=== PATIENT | male | born 1970 | race Caucasian/White ===

== ENCOUNTER 2018-01-30 22:10 | Emergency (ER) | payer OTHER, SELFPAY ==
[2018-01-30 22:14] VITALS: BP 154/93; PULSE 80; RESP 18; TEMP 36.6; O2SAT 98
--- NOTE | 2018-01-30 22:25 | DI.RAD_ITS ---
SYMPTOM/DIAGNOSIS: TRAUMA RIGHT SHOULDER: 01/30 Five views were obtained. There are hypertrophic degenerative changes at the acromioclavicular joint. There is no evidence of acute fracture or dislocation.
--- NOTE | 2018-01-30 22:27 | ED.GENADUL_ITS ---
Discharge Plan Disposition Patient Disposition: HOME Condition: Good Discharge Details Chief Complaint: Orthopedic Clinical Impression: Injury of right shoulder ED Provider: Sourav Tavarez [place] Meds and New Rx's Prescriptions: New ibuprofen 600 mg tablet 600 mg PO TID PRN (Reason: pain) Qty: 30 RF: 0 Continue levothyroxine 125 mcg Tablet 125 mcg PO DAILY RF: 0 Discharge Instructions Instructions: Shoulder Sprain (ED) Additional Instructions: Wear sling for comfort for the next couple of days but try to do range of motion exercises to keep loose. Continue ice over the weekend. Motrin for pain. Follow-up with occupational health this week. Stand Alone Forms: Work Release Medical Decision Making Patient with right shoulder injury in the posterior superior aspect making me worry for rotator cuff injury. I do not think he is dislocated. He is neurovascularly intact distally. Cap refill and pulses are normal. Sensory and strength distally are intact. We will give a shot of Toradol and apply ice. X-ray obtained. X-ray per my read is negative for dislocation or fracture. Will wait for preliminary radiology read. Sling for comfort over the next couple of days. Continue nonsteroidals and ice. Refer to [facility] for follow-up. Prelim radiology read is negative. Patient discharged home. HPI General Mode of arrival: ambulatory . Date/Time Provider Initiated Documentation: 01/30/18 22:24 . Limitations to Documentation: no limitations . Information obtained by: patient . HPI Narrative: Patient is a [id number] male who presents with right shoulder pain. 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 He felt a pop in his posterior shoulder and had immediate pain. Pain radiates to some degree of the lateral side of his neck. He has no numbness or tingling distally but feels that his ring and little finger are cold. He has difficulty raising the right arm now because of pain in the right shoulder. Pain is mostly in the posterior upper portion of the shoulder. Related Data Home Medications Medication Instructions Recorded Confirmed ibuprofen 600 mg PO TID PRN #30 tab 01/30/18 levothyroxine 125 mcg PO DAILY 01/30/18 01/30/18 Previous Rx's Medication Instructions Recorded ibuprofen 600 mg PO TID PRN #30 tab 01/30/18 Allergies Allergy/AdvReac Type Severity Reaction Status Date / Time amoxicillin Allergy Severe Anaphylaxsi Unverified 01/30/18 22:13 s tamsulosin [From Flomax] Allergy Intermediate Skin Rash Unverified 01/30/18 22: 13 General Stated Complaint: Orthopedic RACHAEL: 4 Review of Systems ENT Reports neck pain (right lateral neck) Musculoskeletal Denies back pain, Reports limited range of motion, Reports neck pain (right lateral neck), Denies numbness and Denies tingling Neurologic Denies focal weakness, Denies numbness, Denies radicular pain and Denies tingling PFSH Medical History Thyroid cancer (Inactive) Social History Smoking/Tobacco Use Status: Never Surgical History H/O thyroidectomy (Inactive) Exam Const General: cooperative, healthy appearing, no acute distress and well developed Nutritional Appearance: well nourished Orientation: alert and oriented x3 Neck Neck: normal visual inspection, full ROM and supple Back/Spine/Pelvis Cervical Spine: cervical ROM normal and No cervical spinal tenderness Thoracic/Lumbar Spine: thoraco-lumbar ROM normal Extrem Right upper extremity: normal to inspection, normal capillary refill, shoulder/ upper arm Details: tenderness (posterior upper shoulder) and abnormal ROM, elbow /forearm Details: distal pulses intact and wrist Course Vital Signs Temperature 97.9 F 01/30/18 22:14 Pulse 80 01/30/18 22:14 Respiratory Rate 18 01/30/18 22:14 Blood Pressure 154/93 H 01/30/18 22:14 Pulse Oximetry 98 01/30/18 22:14 Temperature 97.9 F 01/30/18 22:14 Temperature Source Temporal Artery Scan 01/30/18 22:14 Pulse 80 01/30/18 22:14 Respiratory Rate 18 01/30/18 22:14 Blood Pressure 154/93 H 01/30/18 22:14 Blood Pressure Position Sitting 01/30/18 22:14 Pulse Oximetry 98 01/30/18 22:14 Oxygen Delivery Method Room Air 01/30/18 22:14 Oxygen Flow Rate 0 01/30/18 22:14 Pain Level 6 01/30/18 22:16
[2018-01-30] MEDS: Ketorolac 30 MG/ML VIAL IM (22:41)
--- NOTE | 2018-01-30 23:27 | DI.VRAD_ITS ---
EXAM: XR Right Shoulder Complete, 2 or More Views EXAM DATE/TIME: 01/30/2018 10:36 PM CLINICAL HISTORY: 47 years old, male; Pain; Shoulder; Right; Patient HX: Pain in RT shoulder TECHNIQUE: XR Right shoulder complete 2 or more views. COMPARISON: No relevant prior studies available. FINDINGS: Bones/joints: Normal. Soft tissues: Surgical clips over the right thyroid. IMPRESSION: No acute findings. Dictated and Authenticated by: Emmanuel Glynn MD. Ordering:MATI CONTRERAS MD
== END 2018-01-30 23:35 | disposition home or self-care (01) ==
LOC: ER 23:41
PROVIDERS: Emergency Provider Emergency Medicine
DX: S49.91XA Unspecified injury of right shoulder and upper arm, initial encounter (principal); X50.9XXA Other and unspecified overexertion or strenuous movements or postures, initial encounter; Y99.0 Civilian activity done for income or pay
CPT/HCPCS: 96372; 99284; 73030; J1885; L3650